=== PATIENT | male | born 1985 | race Hispanic/Latino ===

== ENCOUNTER → 2023-03-04 | Outpatient (CLI) | payer OTHER | LOC: M PLARAD 09:57 | PROVIDERS: ATTEND Family Medicine | DX: M25.561 Pain in right knee (principal); S83.221A Peripheral tear of medial meniscus, current injury, right knee, initial encounter; X58.XXXA Exposure to other specified factors, initial encounter; Y92.9 Unspecified place or not applicable; Y93.9 Activity, unspecified; Y99.9 Unspecified external cause status ==